=== PATIENT | male | born 1955 | race Caucasian/White ===

== ENCOUNTER 2025-01-20 13:58 | Outpatient (REF) | payer MEDICARE, SELFPAY ==
[2025-01-20 17:33] LABS: Hematocrit 43.6 % (42.0-52.0); Hemoglobin 14.9 g/dl (14.0-18.0); Mean Corpuscular HGB Conc 34.2 g/dl (31.0-36.0); Mean Corpuscular Hemoglobin 30.7 pg (27.0-33.0); Mean Corpuscular Volume 89.9 fL (80.0-98.0); NRBC Abs Auto 0.000 X10*3/uL (0.0-0.012); NRBC Pct Auto 0.0 /100WBC (0.0-0.2); Platelet Count 293 X10*3/uL (160-400); Red Blood Count 4.85 X10*6/uL (4.60-5.80); White Blood Count 8.0 X10*3/uL (4.8-10.8)
[2025-01-20 17:39] LABS: Hemoglobin A1C 475.7347 umol/L; Total Hemoglobin (HGBA1C) 3806.0510 umol/L
[2025-01-20 18:06] LABS: Microalbum/Creatinine Ratio Ur 12.8 ug/mg cr (<30)
[2025-01-20 18:06] LABS: Alanine Aminotransferase 18 U/L (0-40); Albumin Level 4.3 g/dL (3.5-5.0); Alkaline Phosphatase 105 U/L (39-117); Anion Gap 12 (12-20); Aspartate Amino Transferase 25 U/L (5-37); Blood Urea Nitrogen 14 mg/dL (9-16); Calcium 9.1 mg/dL (8.4-10.2); Carbon Dioxide 26 mmol/L (22-29); Chloride 104 mmol/L (96-108); Cholesterol 223 mg/dL (<200); Estimated Glomerular Filt Rate > 60; HDL Cholesterol 42 mg/dL (>40); Potassium 4.3 mmol/L (3.3-5.1); Sodium 138 mmol/L (135-145); Total Protein 7.5 g/dL (6.5-8.0); Triglycerides 230 mg/dL (<150)
[2025-01-20 18:35] LABS: Folate 10.7 ng/mL (> or = 4.0); Vitamin B12 664 pg/mL (200-900)
== END 2025-01-20 13:59 | disposition home or self-care (01) ==
LOC: HO.WFDLDS 13:58
PROVIDERS: PCP Nurse Practitioner Family; Visit Provider Nurse Practitioner Family
DX: Z00.00 Encounter for general adult medical examination without abnormal findings (principal); Z12.5 Encounter for screening for malignant neoplasm of prostate; E78.2 Mixed hyperlipidemia; E11.9 Type 2 diabetes mellitus without complications; Z28.21 Immunization not carried out because of patient refusal; Z53.20 Procedure and treatment not carried out because of patient's decision for unspecified reasons; Z71.89 Other specified counseling; Z76.89 Persons encountering health services in other specified circumstances
CPT/HCPCS: 36415; 80053; 80061; 82043; 82306; 82570; 82607; 82746; 83036; 84153; 85027; 96127; 99212; 99497

== ENCOUNTER 2025-01-20 13:58 | Outpatient (AMB) | payer MEDICARE, SELFPAY ==
--- NOTE | 2025-01-20 14:15 | MHC.PC.OV ---
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 Conventional Machinist Required: No Allergies No Known Allergies Allergy (Verified 01/20/25 14:39) Medication List - Last Reconciled 01/20/25 by CHARITY Hampton No Known Home Meds Tobacco use date assessed: 01/20/25 Fall risk assessment: No Falls in past year Last assessed Fall Risk: 01/20/25 Dental Screening Dental Screen Date: 01/20/25 Did you have a dental visit in the last 12 months?: No Did you have a dental problem in the last 6 months where you did not have access to dental care?: No Was dental information given to patient?: No HPI HPI Comments History of Present Illness Details 70 y/o Montene[place] M, with SurgHx: none FHx SocHx: Health Maintenance: Colon: Vaccines: Declined all. AAA screen EKG: [place] of Care: Visual Acuity: Hearing Screening: ACP: Dietary/Nutrition/Exercise Edu provided: Y Here w/ son, who helps w/ language barrier Heartburn started 1 year ago. Comes and goes. Alleviating: Mylanta Exacerbating: sauces and spices PFSH Medical History (Updated 01/20/25 @ 14:45 by CHARITY Hampton) GERD (gastroesophageal reflux disease) Surgical History (Updated 01/20/25 @ 14:26 by Liborio Almaraz MA) No pertinent past surgical history Family History (Updated 01/20/25 @ 14:26 by Liborio Almaraz MA) Mother Cancer Social History (Updated 01/20/25 @ 14:25 by Liborio Almaraz MA) Household Members: Spouse Both parents involved: No Caregiver staying overnight: No Housing: House Are you a primary memory care program director to a significant other at home: No Do you presently have visiting nurse or other home services: No 75 years or older and lives alone: No Alcohol intake: never Patient Tobacco Use Status: Never used Tobacco e-Cigarette/Vaping Use: Never Used Second Hand Smoke Exposure: No service: No Current occupational status: retired Cognitive needs: No Hearing needs: No Vision needs: No Questionnaire PHQ-9 Over the last 2 weeks, how often have you been bothered by any of the following problems? 1. Little interest or pleasure in doing things: not at all 2. Feeling down, depressed, or hopeless: not at all 3. Trouble falling or staying asleep, or sleeping too much: not at all 4. Feeling tired or having little energy: not at all 5. Poor appetite or overeating: not at all 6. Feeling bad about yourself - or that you are a failure or have let yourself or your family down: not at all 7. Trouble concentrating on things, such as reading the newspaper or watching television: not at all 8. Moving or speaking so slowly that other people could have noticed. Or the opposite - being so fidgety or restless that you have been moving around a lot more than usual: not at all 9. Thoughts that you would be better off or of hurting yourself in some way: not at all Total score: 0 Depression Screening Interpretation: Negative Depression Screening Done: Yes 99909 - PHQ-9 Billing: Yes Source: Developed by Drs. Nirav High, Faviola Butler, Dwain Gale and colleagues, with an educational erica from [employer]. Thrive Questionnaire Date Thrive assessed: 01/20/25 I am a: Patient What is your living situation today?: I have a steady place to live Within the past 12 months, did the food you bought not last and you didn't have the money to get more?: Never true Within the past 12 months, did you worry whether your food would run out before you got money to buy more?: Never true Do you have trouble paying for medicines?: No Do you have trouble getting transportation to medical appointments?: No Do you have trouble paying your heating and electricity bill?: No Do you have trouble taking care of your child, family member or friend?: No Do you have trouble with day-to-day activities such as bathing, preparing meals, shopping, managing finances, etc.?: No Are you currently unemployed and looking for a job?: No Are you interested in more education?: No Please select the resources that you would like help with: None Currently or been in a relationship where the following occur: No concerns reported THRIVE Score: 0 AUDIT C Alcohol Use Questionnaire (AUDIT-C) 1. How often do you have a drink containing alcohol?: Never 3. How often do you have six or more drinks on one occasion?: Never Total Score: 0 Score Reviewed/Action Taken: Yes SUNNI-7 AMB Questionnaire SUNNI-7 Date SUNNI - 7 assessed: 01/20/25 Feeling nervous, anxious, or on edge: 0 = Not at all Not being able to stop or control worryin = Not at all Worrying too much about different things: 0 = Not at all Trouble relaxin = Not at all Being so restless that it is hard to sit still: 0 = Not at all Becoming easily annoyed or irritable: 0 = Not at all Feeling afraid as if something awful might happen: 0 = Not at all Total SUNNI-7 score (0-4 normal; 5-9 mild; 10-14 moderate; 15-21 severe): 0 Source: Developed by Drs. Nirav High, Faviola Butler, Dwain Gale and colleagues, with an educational erica from [employer]. SUNNI-7 Assessment Billing SUNNI-7 Assessment Tool: SUNNI-7 Assessment 57709 Physical exam (Primary Care) Vital Signs: Last Vital Signs Temp 97.8 F 01/20/25 14:23 Pulse 93 01/20/25 14:23 Resp 13 01/20/25 14:23 BP 138/78 01/20/25 14:23 Pulse Ox 96 01/20/25 14:23 Oxygen Delivery Method Room Air 01/20/25 14:23 BMI result Body Mass Index 29.1 Tobacco/Smoking Status: Tobacco use Status Tobacco use date assessed 01/20/25 01/20/25 14:20 Patient Tobacco Use Status Never used Tobacco 01/20/25 14:25 e-Cigarette/Vaping Use Never Used 01/20/25 14:25 PHQ-9: PHQ-9 Score PHQ-9: Total score 0 01/20/25 14:20 Depression Screening Interpretation: Negative Thrive Assessment: Date of Thrive Assessment Date Thrive assessed 01/20/25 01/20/25 14:20 Currently or been in a relationship where the following occur: No concerns reported Coding Diagnoses Laboratory exam ordered as part of routine general medical examination Z00.00 Additional Codes SUNNI-7 Assessment Billing - SUNNI-7 Assessment Tool: SUNNI-7 Assessment 07459 ([id number]) PHQ-9 - 67250 - PHQ-9 Billing: Yes ([id number]) Assessment & Plan Assessment & Plan (1) Laboratory exam ordered as part of routine general medical examination: Code(s): Z00.00 - Encounter for general adult medical examination without abnormal findings Category: Medical Orders: Orders Complete Blood Count no Diff Today Z00.00 - Encounter for general adult medical examination without abnormal findings Hemoglobin A1c Today Z00.00 - Encounter for general adult medical examination without abnormal findings Lipid Panel Today Z00.00 - Encounter for general adult medical examination without abnormal findings Comprehensive Met. Panel Today Z00.00 - Encounter for general adult medical examination without abnormal findings Microalbumin, Random (w Creat) Today Z00.00 - Encounter for general adult medical examination without abnormal findings Prostate Specific Antigen Scr Today Z00.00 - Encounter for general adult medical examination without abnormal findings Vitamin B12 and Folate Today Z00.00 - Encounter for general adult medical examination without abnormal findings Vitamin D 25-OH Total Today Z00.00 - Encounter for general adult medical examination without abnormal findings Medications: New pantoprazole 20 mg PO DAILY 90 tabs 2RF Patient Instructions: Pantoprazole was sent to Trellt Take this daily for 4 weeks and then as needed. I have sent in enough for 1 year; ok to take daily if your heartburn symptoms continue. Return in 1 year for a physical, or sooner as needed. Walk-In Care (Urgent Care): We Make it Easy Walk-in for urgent medical issues such as: ? Seasonal Allergies ? Insect Bites ? Cough ? Diarrhea ? Acute Asthma Attacks ? Back, Knee or Joint Pain ? Ear Infection ? Fever without a Rash ? Headaches ? Nausea ? [place] [facility], Rash or Skin Irritation ? Sore Throat ? Sports Physicals ? Vomiting Most insurances are accepted. Patients do not need to be part of the [facility] to seek care at the walk-in clinic. Locations [address], [place] [address] ? [phone] [facility] Walk-In Care in [place] provides services to ages 18 and over. Open Friday-Friday: 7 a.m. to 5 p.m. and Friday: 9 a.m. to 3 p.m.* *Hours may vary due to staffing availability. To confirm Walk-In Care hours in [place], please call [phone]. [address] [place] [address] ? [phone] [facility] Walk-In Care in [place] provides services to ages 12 and over. Open Friday-Friday: 8 a.m. to 5 p.m. Hours may vary due to staffing availability. To confirm Walk-In Care hours in [place], please call [phone]. LABORATORY SERVICES: [facility] Lab ? Primary Location [address] [place] [address] Friday through Friday 6:00 AM ? 5:00 PM Friday 7:00 AM ? 11:00 AM* [phone] The [facility] Lab is centrally located near the front entrance of the [facility] for easy outpatient access. Convenient parking is provided for outpatients. *Hours may vary due to staffing availability. To confirm Laboratory hours for any location, please call [phone]. Offsite Location For your convenience, we offer offsite laboratory draw stations at the following locations: [address] [place] [address] ? [address], [address] Friday through Friday 7:30 AM ? 1:00 PM* [phone] *Hours may vary due to staffing availability. To confirm Laboratory hours for any location, please call [phone]. [place] ? [address] Friday through Friday 6:00 AM ? 3:30 PM* Friday 6:30 AM ? 3 PM* [phone] *Hours may vary due to staffing availability. To confirm Laboratory hours for any location, please call [phone] [place] [address] Friday through Friday 7:30 AM ? 4:00 PM* [phone] *Hours may vary due to staffing availability. To confirm Laboratory hours for any location, please call [phone] [place] [address] Friday through 9:00 AM ? 4:00 PM* *Hours may vary due to staffing availability. To confirm Laboratory hours for any location, please call [phone]. Appointments are not necessary. Walk-ins are welcome. Like all the departments throughout the [facility], our Lab undergoes frequent reviews to ensure the quality and accuracy of test results, and our staff takes special pride in its status as a nationally accredited facility. Patient Portal: [facility] ONE PATIENT. ONE RECORD. BETTER CARE. [facility] has a fully integrated, cutting-edge mobile electronic health information system that has revolutionized the way we care for our patients and manage our organization. This system improves communication and coordination enabling us to provide safe, higher-quality care, and an overall positive experience for staff and patients. Our first priority, as always, is to deliver the highest quality care possible. The system is running in the background supporting that priority. This portal is for all [facility] and [facility] services and practices. If you are experiencing any technical difficulties with enrolling or logging into the Patient Portal please complete the [facility] Patient Portal Technical Support Form. [facility] now offers a new secure on-line interactive tool for patients to review their health information ? Patient Portal. This interactive web portal will enable patients and their families to take an active role in their care by providing easy, secure access to their health information via the internet. The Patient Portal provides patients with instant access to their health information, including laboratory results, medications, allergies, demographic information, visit history, and more. In addition to managing their own care, parents and health care proxies with authorized consent will appreciate the ability to access the records of those individuals for whom they provide care. Please note: if you wish to gain access (Proxy) to another patient?s portal, you will be required to come to the Medical Records Department in person at [facility]. Both the patient giving proxy access and the proxy will need to provide photo identification and complete the appropriate authorization. The Patient Portal also allows track their appointments online. The [facility] Patient Portal also saves patients time by allowing them to submit updates to their demographic and contact information prior to their visits. Portal email notifications will also alert patients to any new activity on their portal, such as test results and new appointments. In order to initially enroll in the [facility] Patient Portal, you will need to enter some required information including the following: ? your [facility] Medical Record number ? your personal home email address ? name ? date of Please note: In order to enroll in the [facility] Patient Portal, we need to have your email address on file in your electronic medical record. The email address needs to be specific for one person (yourself) in order for your Portal enrollment to be successful. You can update your email address in person with our Registration staff when you are registering for a hospital visit. Otherwise, you will need to come to the Health Information Management (Medical Records) Department at [facility]. We are open from Friday ? Friday from 7:30 a.m. ? 4:30 p.m. You will be required to present a photo id. Once you have successfully enrolled in the Patient Portal, you will receive a one-time user id and password for the Portal, sent to your email address. This will allow you to log into the Patient Portal within 99 hrs and reset your own logon id and password, and define personal security questions. Once your permanent login and password have been set, you can log into the [facility] Patient Portal at any time via the blue button above or from the Portal Logon button on any page of the [facility] website. [facility] and [facility] encourage all of our patients to enroll in Patient Portal as it presents a valuable opportunity for patients and their families to actively participate in their care and stay healthy Welcome to [facility]. We look forward to working with you. Health screenings for men You should visit your health care provider regularly, even if you feel healthy. The purpose of these visits is to: Screen for medical issues Assess your risk for future medical problems Encourage a healthy lifestyle Update vaccinations and other preventive care services Help you get to know your provider in case of an illness Information Even if you feel fine, you should still see your provider for regular checkups. These visits can help you avoid problems in the future. For example, the only way to find out if you have high blood pressure is to have it checked regularly. High blood sugar and high cholesterol level also may not have any symptoms in the early stages. Simple blood tests can check for these conditions. There are specific times when you should see your provider or receive specific health screenings. The [place] Preventive Services Task Force publishes a list of recommended screenings. Below are screening guidelines for men ages 40 to 64. BLOOD PRESSURE SCREENING Have your blood pressure checked at least once every year. Watch for blood pressure screenings in your area. Ask your provider if you can stop in to have your blood pressure checked. Ask your provider if you need your blood pressure checked more often if: You have diabetes, heart disease, kidney problems, or are overweight or have certain other health conditions You have a first-degree relative with high blood pressure You are Black Your blood pressure top number is from 120 to 129 mm Hg, or the bottom number is from 70 to 79 mm Hg If the top number is 130 mm Hg or greater or the bottom number is 80 mm Hg or greater, this is considered stage 1 hypertension. Schedule an appointment with your provider to learn how you can lower your blood pressure. Effects of age on blood pressure CHOLESTEROL SCREENING Cholesterol screening should begin at age 35 for men with no known risk factors for coronary heart disease. Repeat cholesterol screening should take place: Every 5 years for men with normal cholesterol levels More often if changes occur in lifestyle (including weight gain and diet) More often if you have diabetes, heart disease, kidney problems, or certain other conditions COLORECTAL CANCER SCREENING If you are under age 45, talk to your provider about getting screened. You may need to be screened if you have a strong family history of colon cancer or polyps. Screening may also be considered if you have risk factors such as a history of inflammatory bowel disease or polyps. If you are age 45 to 75, you should be screened for colorectal cancer. There are several screening tests available: A stool-based fecal occult blood (gFOBT) or fecal immunochemical test (FIT) every year A stool sDNA test every 1 to 3 years Flexible sigmoidoscopy every 5 years or every 10 years with stool testing FIT done every year CT colonography (virtual colonoscopy) every 5 years Colonoscopy every 10 years You may need a colonoscopy more often if you have risk factors for colorectal cancer, such as: Ulcerative colitis A personal or family history of colorectal cancer A history of growths in your colon called adenomatous polyps DENTAL EXAM Go to the dentist once or twice every year for an exam and cleaning. Your dentist will evaluate if you have a need for more frequent visits. DIABETES SCREENING All adults who do not have risk factors for diabetes should be screened starting at age 35 and repeated every 3 years. If you have other risk factors for diabetes, such as a first degree relative with diabetes, overweight or obesity, high blood pressure, prediabetes, or a history of heart disease, you may be tested more often. If you are overweight and have other risk factors, such as high blood pressure and are planning to become , screening is recommended. EYE EXAM Have an eye exam every 2 to 4 years ages 40 to 54 and every 1 to 3 years ages 55 to 64. Your provider may recommend more frequent eye exams if you have vision problems or glaucoma risk. Have an eye exam that includes an examination of your retina (back of your eye) at least every year if you have diabetes. IMMUNIZATIONS Commonly needed vaccines include: Flu shot: get one every year COVID-19 vaccine: ask your provider what is best for you Tetanus-diphtheria and acellular pertussis (Tdap) vaccine: have as one of your tetanus-diphtheria vaccines if you did not receive it as an adolescent Tetanus-diphtheria: have a booster (or Tdap) every 10 years Varicella vaccine: receive 2 doses if you never had chickenpox or the varicella vaccine and were born in 1980 or after Hepatitis B vaccine: receive 2, 3, or 4 doses, depending on your exact circumstances, if you did not receive these as a child or adolescent, until age 59 Shingles (herpes zoster) vaccine: at or after age 50 Ask your provider if you should receive other immunizations, especially if you have certain medical conditions, such as diabetes or are at increased risk for some diseases such as pneumonia. INFECTIOUS DISEASE SCREENING Screening for hepatitis C: all adults ages 18 to 79 should get a one-time test for hepatitis C. Screening for human immunodeficiency virus (HIV): all people ages 15 to 65 should get a one-time test for HIV. Depending on your lifestyle and medical history, you may need to be screened for infections such as syphilis, chlamydia, and other infections. LUNG CANCER SCREENING You should have an annual screening for lung cancer with low-dose computed tomography (LDCT) if: You are age 50 to 80 years AND You have a 20 pack-year smoking history AND You currently smoke or have quit within the past 15 years OSTEOPOROSIS SCREENING If you are age 50 to 64 and have risk factors for osteoporosis, you should discuss screening with your provider. Risk factors can include long-term steroid use, low body weight, smoking, heavy alcohol use, having a fracture after age 50, or a family history of hip fracture or osteoporosis. Osteoporosis PHYSICAL EXAM All adults should visit their provider from time to time, even if they are healthy. The purpose of these visits is to: Screen for diseases Assess risk of future medical problems Encourage a healthy lifestyle Update vaccinations and other preventive care services Maintain a relationship with a provider in case of an illness Your height, weight, and body mass index (BMI) should be checked at every exam. During your exam, your provider may ask you about: Depression and anxiety Diet and exercise Alcohol and tobacco use Safety, such as use of seat belts and smoke detectors Your medicines and risk for interactions PROSTATE CANCER SCREENING If you're 55 through 69 years old, before having the test, talk to your provider about the pros and cons of having a PSA test. Ask about: Whether screening decreases your chance of dying from prostate cancer. Whether there is any harm from prostate cancer screening, such as side effects from testing or overtreatment of cancer when discovered. Whether you have a higher risk of prostate cancer than others. If you are age 55 or younger, screening is not generally recommended. You should talk with your provider about if you have a higher risk for prostate cancer. Risk factors include: Having a family history of prostate cancer (especially a brother or father) Being If you choose to be tested, the PSA blood test is repeated over time (yearly or less often), though the best frequency is not known. Prostate examinations are no longer routinely done on men with no symptoms. Prostate cancer SKIN EXAM Your provider may check your skin for signs of skin cancer, especially if you're at high risk. People at high risk include those who have had skin cancer before, have close relatives with skin cancer, or have a weakened immune system. TESTICULAR EXAM The [place] Preventive Services Task Force (USPSTF) now recommends against performing testicular self-exams. Doing testicular self-exams has been shown to have little to no benefit.
[2025-01-20 14:23] VITALS: BP 138/78; PULSE 93; RESP 13; TEMP 36.6; O2SAT 96; BMI 29.1
--- NOTE | 2025-01-24 07:33 | AM.OFFVISMDC ---
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 The Medicare Annual Wellness Visit (AWV) is a yearly appointment with a health professional to identify health risks and help reduce them and to create or update a personalized prevention plan. During a Medicare AWV, health professionals should also review any current opioid prescriptions, detect any cognitive impairment, and establish or update medical and family history. 70 y/o [place] M, with DM2, HLD, GERD SurgHx: none FHx: Y SocHx: Y Health Maintenance: See scanned preventative medicine assessment with personalized health plan and screening schedule. Colon: Declined Vaccines: Declined all. AAA screen: Declined EKG: Declined [place] of Care: None Visual Acuity: Declined screen, reports vision is fine. No last eye exam to record. Hearing Screening: Reports no issues or concerns ACP: Does not have; forms reviewed. Dietary/Nutrition/Exercise Edu provided: Y During the course of the visit the patient was educated and counseled about appropriate screening and preventative services. Patient instructions were provided to the patient in written or electronic format. I have reviewed and verified the above information. Here w/ son, who helps w/ language barrier. No medical care in > 60 years. Heartburn started 1 year ago. Comes and goes. Alleviating: Mylanta Exacerbating: sauces and spices - Onset last year, intermittent symptoms. - Mylanta provides symptomatic relief. - Symptoms exacerbated by spicy foods. - Reports constipation with hard stools occasionally. Social History - Lives with family. - Has five children. - Drives independently. Health Maintenance - Discussed screening colonoscopy for colon cancer; patient declined. - Offered vaccines; patient declined based on cultural preference. Review of Systems - Gastrointestinal: Reports heartburn, constipation. - General: Denies other concerns. - Respiratory: Denies issues. - Visual: Denies problems with vision. Physical Exam General: Well developed, well nourished, in no acute distress. Appears stated age. Head: Normocephalic, atraumatic. Eyes: No problems with eyes or vision reported. Pupils are equal, round and reactive to light and accommodation. Conjunctivae are clear. Vision grossly normal. Ears: TMs clear AU, EACS WNL Nose: Patent, without discharge. Neck: Supple, no adenopathy or thyromegaly. Breast: Edu on SBE Lungs: Clear to auscultation bilaterally. No rales, rhonchi or wheeze noted. Good air flow in all buenrostro. Heart: Regular rate and rhythm. No murmurs, click, rubs or gallops are noted. Abdomen: Bowel sounds present in all quadrants. The abdomen is soft, nontender, with no masses or organomegaly noted. No hernias are noted. : Deferred. Reviewed JUNIOR & recommendations Musculoskeletal: Joints are nontender, without swelling, redness, or effusions. Range of motion is observed to be normal. Pulses: Peripheral pulses are equal and palpable bilaterally. Extremities: No clubbing, cyanosis nor edema is noted. Neurologic: Gait and station normal. Cranial Nerves 2-12 intact. Motor strength grossly symmetrical and intact. No sensory loss. Balance normal. Skin: No rashes, ulcers, or lesions noted. Turgor is good. Skin color is good. Hair and nails are without abnormalities. Psych: Normal eye contact, affect and mood appropriate, and normal interactions. Patient is alert and appropriate to context. Results See below Discussion Notes We discussed that the patient reports symptoms of heartburn believed to be consistent with gastroesophageal reflux disease, for which I offered the option of prescriptive medication. I explained that the medication could be taken daily for a duration of four weeks or continuously depending on symptoms. We also reviewed the option of undergoing a colonoscopy for cancer screening, which the patient declined after discussing with him cultural and personal preferences. We addressed the patient?s constipation by discussing potential relief strategies, though specific interventions beyond today's discussion were not pursued. I also explained I would type up the prescription for heartburn medication and consider possible diagnostic tests for future appointments. Patient was given time to ask questions. All questions were answered to their satisfaction. Assessment and Plan 1. Gastroesophageal Reflux Disease (GERD) - GERD management with prescription medication. - Discussed daily or 'as needed' medication use. 2. Constipation - Occasional constipation advice given. - Consider self-care with remedies. 3. HLD and DM2. Pt will be called w/ results and treatments offered. Patient Instructions - Take the prescribed medication for heartburn as directed. - Use the medication for either four weeks continuously or as needed after that. - Avoid spicy foods if they worsen heartburn symptoms. - Increase fluid and fiber intake for constipation relief. - RTO 1 year CPE Consent The patient consented to receive prescription medication for GERD management after discussing usage frequency options. He acknowledged understanding the benefits of regular versus as-needed usage. The potential for conducting further diagnostic evaluations in the future was discussed, with mutual understanding, although today's session did not involve detailed procedural or treatment discussions requiring consent. Consent obtained verbally. Patient was informed and verbally consented to the use of an ambient scribe for clinic note documentation during this visit. An additional 30 minutes was spent addressing the problem(s) noted at todays visit. This includes time spent before the visit reviewing the chart, time spent during the visit, and time spent after the visit on documentation reviewing laboratory results, diagnostic imaging, medications, performing a medically necessary evaluation, counseling on diagnoses, care coordination, ordering appropriate tests, ordering appropriate medications, review of tests performed by other providers, reporting test results with the patient, communication with other healthcare providers. [facility] Medical History (Updated 01/24/25 @ 07:50 by Carmen Fischer, [facility]) GERD (gastroesophageal reflux disease) Surgical History (Updated 01/20/25 @ 14:26 by Liborio Almaraz MA) No pertinent past surgical history Family History (Updated 01/20/25 @ 14:26 by Liborio Almaraz MA) Mother Cancer Social History (Updated 01/20/25 @ 14:25 by Liborio Almaraz MA) Household Members: Spouse Both parents involved: No Caregiver staying overnight: No Housing: House Are you a primary childcare center director to a significant other at home: No Do you presently have visiting nurse or other home services: No 75 years or older and lives alone: No Alcohol intake: never Patient Tobacco Use Status: Never used Tobacco e-Cigarette/Vaping Use: Never Used Second Hand Smoke Exposure: No service: No Current occupational status: retired Cognitive needs: No Hearing needs: No Vision needs: No Questionnaire Medicare Wellness Checkup What [age] your age?: 65-70 What gender do you identify with?: male During the past 4 weeks, how much have you been bothered by emotional problems such as feeling anxious, depressed, irritable, sad or downhearted, and blue?: not at all During the past 4 weeks, has your physical & emotional health limited your social activities with family, friends, neighbors, or groups?: not at all During the past 4 weeks, how much bodily pain have you generally had?: no pain During the past 4 weeks, was someone available to help you if you needed & wanted help?: yes, as much as I wanted During the past 4 weeks, what was the hardest physical activity you could do for at least 2 minutes?: moderate Can you get to places out of walking distance without help? (For eg., can you travel alone on buses, taxis or drive your car?): Yes Can you go shopping for groceries or clothes without someone's help?: Yes Can you prepare your own meals?: Yes Can you do your housework without help?: Yes Because of any health problems, do you need the help of another person with your personal care needs such as eating, bathing, dressing or getting around the house?: No Can you handle your own money without help?: Yes During the past 4 weeks, how would you rate your health in general?: excellent During the past 4 weeks how have things been going for you?: very well; could hardly better Are you having difficulties driving your car?: no Do you always fasten your seat belt when you are in a car?: yes, usually During past 4 weeks, have you been bothered by the following: never: Falling or dizzy when standing up, Sexual problems?, Trouble eating well?, Teeth or denture problems?, Problems using the telephone? and Tiredness or fatigue? Have you fallen 2 or more times in the past year?: No Are you afraid of falling?: No Are you a smoker?: no During the past 4 weeks, how many drinks of wine, beer, or other alcoholic beverages did you have?: no alcohol at all Do you exercise for about 20 minutes 3 or more times a week?: yes, some of the time Have you been given information to help with the following?: no: Hazards in your house that might hurt you? and no: Keeping track of your medications? How often do you have trouble taking medicines the way you have been told to take them?: I do not have to take medicine How confident are you that you can control & manage most of your health problems?: very confident What is your race?: Other Activity of Daily Living Bathing - sponge bath, tub bath or shower: receives no assistance (gets in/out by self, if usual bathing means Dressing - getting clothes from closets & drawers, including inner/outer garments & fasteners.: gets clothes & gets completely dressed without help Toileting - going to the 'toilet room' for urine/bowel elimination & cleaning self/arranging clothes: goes to toilet room, cleans self, arranges clothes without help Transfer: moves in & out of bed and chair without help (may use support object) Continence: controls urination/bowel movements completely by self Feeding: feeds self without help Total Score: 0 Information obtained from: patient Using telephone: independent Traveling: independent Shopping: independent Preparing meals: independent Housework: independent Taking medicine: independent Managing money: independent PHQ-9 Over the last 2 weeks, how often have you been bothered by any of the following problems? 1. Little interest or pleasure in doing things: not at all 2. Feeling down, depressed, or hopeless: not at all 3. Trouble falling or staying asleep, or sleeping too much: not at all 4. Feeling tired or having little energy: not at all 5. Poor appetite or overeating: not at all 6. Feeling bad about yourself - or that you are a failure or have let yourself or your family down: not at all 7. Trouble concentrating on things, such as reading the newspaper or watching television: not at all 8. Moving or speaking so slowly that other people could have noticed. Or the opposite - being so fidgety or restless that you have been moving around a lot more than usual: not at all 9. Thoughts that you would be better off or of hurting yourself in some way: not at all Total score: 0 Depression Screening Interpretation: Negative Depression Screening Done: Yes 07342 - PHQ-9 Billing: Yes Source: Developed by Faviola CedenoW. Luke, Dwain Gale and colleagues, with an educational erica from [employer]. Physical Exam Vital Signs: Last Vital Signs Temp 97.8 F 01/20/25 14:23 Pulse 93 01/20/25 14:23 Resp 13 01/20/25 14:23 BP 138/78 01/20/25 14:23 Pulse Ox 96 01/20/25 14:23 Oxygen Delivery Method Room Air 01/20/25 14:23 BMI result Body Mass Index 29.1 Results Reviewed Results Reviewed: Assessment & Plan Assessment & Plan (1) Encounter for subsequent annual wellness visit (AWV) in Medicare patient: Onset Date: ~01/20/25 Code(s): Z00.00 - Encounter for general adult medical examination without abnormal findings (2) ACP (advance care planning): Code(s): Z71.89 - Other specified counseling (3) HLD (hyperlipidemia): Code(s): E78.5 - Hyperlipidemia, unspecified Qualifiers: Hyperlipidemia type: mixed hyperlipidemia Qualified Code(s): E78.2 - Mixed hyperlipidemia (4) DM2 (diabetes mellitus, type 2): Code(s): E11.9 - Type 2 diabetes mellitus without complications Qualifiers: 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: without assisted use Diabetes mellitus complication status: without complication Qualified Code(s): E11.9 - Type 2 diabetes mellitus without complications (5) Vaccination declined: Code(s): Z28.21 - Immunization not carried out because of patient refusal (6) Colon cancer screening declined: Code(s): Z53.20 - Procedure and treatment not carried out because of patient's decision for unspecified reasons (7) Laboratory exam ordered as part of routine general medical examination: Code(s): Z00.00 - Encounter for general adult medical examination without abnormal findings (8) Encounter to establish care with new provider: Code(s): Z76.89 - Persons encountering health services in other specified circumstances Plan . Orders: Orders Complete Blood Count no Diff 01/20/25 Z00.00 - Encounter for general adult medical examination without abnormal findings Hemoglobin A1c 01/20/25 Z00.00 - Encounter for general adult medical examination without abnormal findings Lipid Panel 01/20/25 Z00. - Encounter for general adult medical examination without abnormal findings Comprehensive Met. Panel 01/20/25 Z00.00 - Encounter for general adult medical examination without abnormal findings Microalbumin, Random (w Creat) 01/20/25 Z. - Encounter for general adult medical examination without abnormal findings Prostate Specific Antigen Scr 01/20/25 Z. - Encounter for general adult medical examination without abnormal findings Vitamin B12 and Folate 01/20/25 Z. - Encounter for general adult medical examination without abnormal findings Vitamin D 25-OH Total 01/20/25 Z. - Encounter for general adult medical examination without abnormal findings Medications: New pantoprazole 20 mg PO DAILY 90 tabs 2RF Patient Instructions: Walk-In Care (Urgent Care): We Make it Easy Walk-in for urgent medical issues such as: ? Seasonal Allergies ? Insect Bites ? Cough ? Diarrhea ? Acute Asthma Attacks ? Back, Knee or Joint Pain ? Ear Infection ? Fever without a Rash ? Headaches ? Nausea ? [place], Rash or Skin Irritation ? Sore Throat ? Sports Physicals ? Vomiting Most insurances are accepted. Patients do not need to be part of the [facility] to seek care at the walk-in clinic. Locations [facility] , [place] [address] ? [phone] [facility] Walk-In Care in [place] provides services to ages 18 and over. Open Friday-Friday: 7 a.m. to 5 p.m. and Friday: 9 a.m. to 3 p.m.* *Hours may vary due to staffing availability. To confirm Walk-In Care hours in [place], please call [phone]. [address] [place] [address] ? [phone] [facility] Walk-In Care in [place] provides services to ages 12 and over. Open Friday-Friday: 8 a.m. to 5 p.m. Hours may vary due to staffing availability. To confirm Walk-In Care hours in [place], please call [phone]. LABORATORY SERVICES: [facility] Lab ? Primary Location [address] [place] [address] Friday through Friday 6:00 AM ? 5:00 PM Friday 7:00 AM ? 11:00 AM* [phone] The [facility] Lab is centrally located near the front entrance of the Medical Center for easy outpatient access. Convenient parking is provided for outpatients. *Hours may vary due to staffing availability. To confirm Laboratory hours for any location, please call [phone]. Offsite Location For your convenience, we offer offsite laboratory draw stations at the following locations: [address] [facility], [place] ? [address], [address], [place] Friday through Friday 7:30 AM ? 1:00 PM* [phone] *Hours may vary due to staffing availability. To confirm Laboratory hours for any location, please call [phone]. [place] ? [facility] [address] [facility], [place] Friday through Friday 6:00 AM ? 3:30 PM* Friday 6:30 AM ? 3 PM* [phone] *Hours may vary due to staffing availability. To confirm Laboratory hours for any location, please call [phone]. [address] [facility] Friday through Friday 7:30 AM ? 4:00 PM* [phone] *Hours may vary due to staffing availability. To confirm Laboratory hours for any location, please call [phone] [place] [address] Friday through 9:00 AM ? 4:00 PM* *Hours may vary due to staffing availability. To confirm Laboratory hours for any location, please call [phone]. Appointments are not necessary. Walk-ins are welcome. Like all the departments throughout the [facility], our Lab undergoes frequent reviews to ensure the quality and accuracy of test results, and our staff takes special pride in its status as a nationally accredited facility. Patient Portal: [facility] ONE PATIENT. ONE RECORD. BETTER CARE. [facility] has a fully integrated, cutting-edge mobile electronic health information system that has revolutionized the way we care for our patients and manage our organization. This system improves communication and coordination enabling us to provide safe, higher-quality care, and an overall positive experience for staff and patients. Our first priority, as always, is to deliver the highest quality care possible. The system is running in the background supporting that priority. This portal is for all [facility] services and practices. If you are experiencing any technical difficulties with enrolling or logging into the Patient Portal please complete the [facility] Patient Portal Technical Support Form. [facility] now offers a new secure on-line interactive tool for patients to review their health information ? ?Patient Portal. This interactive web portal will enable patients and their families to take an active role in their care by providing easy, secure access to their health information via the internet. The Patient Portal provides patients with instant access to their health information, including laboratory results, medications, allergies, demographic information, visit history, and more. In addition to managing their own care, parents and health care proxies with authorized consent will appreciate the ability to access the records of those individuals for whom they provide care. Please note: if you wish to gain access (Proxy) to another patient?s portal, you will be required to come to the Medical Records Department in person at [facility]. Both the patient giving proxy access and the proxy will need to provide photo identification and complete the appropriate authorization. The Patient Portal also allows track their appointments online. The [facility] Patient Portal also saves patients time by allowing them to submit updates to their demographic and contact information prior to their visits. Portal email notifications will also alert patients to any new activity on their portal, such as test results and new appointments. In order to initially enroll in the [facility] Patient Portal, you will need to enter some required information including the following: your [facility] Medical Record number your personal home email address name date of Please note: In order to enroll in the [facility] Patient Portal, we need to have your email address on file in your electronic medical record. ?The email address needs to be specific for one person (yourself) in order for your Portal enrollment to be successful. ?You can update your email address in person with our Registration staff when you are registering for a hospital visit. ?Otherwise, you will need to come to the Health Information Management (Medical Records) Department at [facility]. ?We are open from Friday ? Friday from 7:30 a.m. ? 4:30 p.m. ?You will be required to present a photo id. Once you have successfully enrolled in the Patient Portal, you will receive a one-time user id and password for the Portal, sent to your email address. ?This will allow you to log into the Patient Portal within 99 hrs and reset your own logon id and password, and define personal security questions. ?Once your permanent login and password have been set, you can log into the [facility] Patient Portal at any time via the blue button above or from the Portal Logon button on any page of the [facility] website. [facility] encourage all of our patients to enroll in Patient Portal as it presents a valuable opportunity for patients and their families to actively participate in their care and stay healthy Welcome to [facility]. ?We look forward to working with you. Health screenings for men You should visit your health care provider regularly, even if you feel healthy. The purpose of these visits is to: Screen for medical issues Assess your risk for future medical problems Encourage a healthy lifestyle Update vaccinations and other preventive care services Help you get to know your provider in case of an illness Information Even if you feel fine, you should still see your provider for regular checkups. These visits can help you avoid problems in the future. For example, the only way to find out if you have high blood pressure is to have it checked regularly. High blood sugar and high cholesterol level also may not have any symptoms in the early stages. Simple blood tests can check for these conditions. There are specific times when you should see your provider or receive specific health screenings. The [place] Preventive Services Task Force publishes a list of recommended screenings. Below are screening guidelines for men ages 40 to 64. BLOOD PRESSURE SCREENING Have your blood pressure checked at least once every year. Watch for blood pressure screenings in your area. Ask your provider if you can stop in to have your blood pressure checked. Ask your provider if you need your blood pressure checked more often if: You have diabetes, heart disease, kidney problems, or are overweight or have certain other health conditions You have a first-degree relative with high blood pressure You are Black Your blood pressure top number is from 120 to 129 mm Hg, or the bottom number is from 70 to 79 mm Hg If the top number is 130 mm Hg or greater or the bottom number is 80 mm Hg or greater, this is considered stage 1 hypertension. Schedule an appointment with your provider to learn how you can lower your blood pressure. Effects of age on blood pressure CHOLESTEROL SCREENING Cholesterol screening should begin at age 35 for men with no known risk factors for coronary heart disease. Repeat cholesterol screening should take place: Every 5 years for men with normal cholesterol levels More often if changes occur in lifestyle (including weight gain and diet) More often if you have diabetes, heart disease, kidney problems, or certain other conditions COLORECTAL CANCER SCREENING If you are under age 45, talk to your provider about getting screened. You may need to be screened if you have a strong family history of colon cancer or polyps. Screening may also be considered if you have risk factors such as a history of inflammatory bowel disease or polyps. If you are age 45 to 75, you should be screened for colorectal cancer. There are several screening tests available: A stool-based fecal occult blood (gFOBT) or fecal immunochemical test (FIT) every year A stool sDNA test every 1 to 3 years Flexible sigmoidoscopy every 5 years or every 10 years with stool testing FIT done every year CT colonography (virtual colonoscopy) every 5 years Colonoscopy every 10 years You may need a colonoscopy more often if you have risk factors for colorectal cancer, such as: Ulcerative colitis A personal or family history of colorectal cancer A history of growths in your colon called adenomatous polyps DENTAL EXAM Go to the dentist once or twice every year for an exam and cleaning. Your dentist will evaluate if you have a need for more frequent visits. DIABETES SCREENING All adults who do not have risk factors for diabetes should be screened starting at age 35 and repeated every 3 years. If you have other risk factors for diabetes, such as a first degree relative with diabetes, overweight or obesity, high blood pressure, prediabetes, or a history of heart disease, you may be tested more often. If you are overweight and have other risk factors, such as high blood pressure and are planning to become , screening is recommended. EYE EXAM Have an eye exam every 2 to 4 years ages 40 to 54 and every 1 to 3 years ages 55 to 64. Your provider may recommend more frequent eye exams if you have vision problems or glaucoma risk. Have an eye exam that includes an examination of your retina (back of your eye) at least every year if you have diabetes. IMMUNIZATIONS Commonly needed vaccines include: Flu shot: get one every year COVID-19 vaccine: ask your provider what is best for you Tetanus-diphtheria and acellular pertussis (Tdap) vaccine: have as one of your tetanus-diphtheria vaccines if you did not receive it as an adolescent Tetanus-diphtheria: have a booster (or Tdap) every 10 years Varicella vaccine: receive 2 doses if you never had chickenpox or the varicella vaccine and were born in 1980 or after Hepatitis B vaccine: receive 2, 3, or 4 doses, depending on your exact circumstances, if you did not receive these as a child or adolescent, until age 59 Shingles (herpes zoster) vaccine: at or after age 50 Ask your provider if you should receive other immunizations, especially if you have certain medical conditions, such as diabetes or are at increased risk for some diseases such as pneumonia. INFECTIOUS DISEASE SCREENING Screening for hepatitis C: all adults ages 18 to 79 should get a one-time test for hepatitis C. Screening for human immunodeficiency virus (HIV): all people ages 15 to 65 should get a one-time test for HIV. Depending on your lifestyle and medical history, you may need to be screened for infections such as syphilis, chlamydia, and other infections. LUNG CANCER SCREENING You should have an annual screening for lung cancer with low-dose computed tomography (LDCT) if: You are age 50 to 80 years AND You have a 20 pack-year smoking history AND You currently smoke or have quit within the past 15 years OSTEOPOROSIS SCREENING If you are age 50 to 64 and have risk factors for osteoporosis, you should discuss screening with your provider. Risk factors can include long-term steroid use, low body weight, smoking, heavy alcohol use, having a fracture after age 50, or a family history of hip fracture or osteoporosis. Osteoporosis PHYSICAL EXAM All adults should visit their provider from time to time, even if they are healthy. The purpose of these visits is to: Screen for diseases Assess risk of future medical problems Encourage a healthy lifestyle Update vaccinations and other preventive care services Maintain a relationship with a provider in case of an illness Your height, weight, and body mass index (BMI) should be checked at every exam. During your exam, your provider may ask you about: Depression and anxiety Diet and exercise Alcohol and tobacco use Safety, such as use of seat belts and smoke detectors Your medicines and risk for interactions PROSTATE CANCER SCREENING If you're 55 through 69 years old, before having the test, talk to your provider about the pros and cons of having a PSA test. Ask about: Whether screening decreases your chance of dying from prostate cancer. Whether there is any harm from prostate cancer screening, such as side effects from testing or overtreatment of cancer when discovered. Whether you have a higher risk of prostate cancer than others. If you are age 55 or younger, screening is not generally recommended. You should talk with your provider about if you have a higher risk for prostate cancer. Risk factors include: Having a family history of prostate cancer (especially a brother or father) Being If you choose to be tested, the PSA blood test is repeated over time (yearly or less often), though the best frequency is not known. Prostate examinations are no longer routinely done on men with no symptoms. Prostate cancer SKIN EXAM Your provider may check your skin for signs of skin cancer, especially if you're at high risk. People at high risk include those who have had skin cancer before, have close relatives with skin cancer, or have a weakened immune system. TESTICULAR EXAM The [place] Preventive Services Task Force (USPSTF) now recommends against performing testicular self-exams. Doing testicular self-exams has been shown to have little to no benefit. Quality Reporting (2019) Adult ([facility] 138//) Smoking risk assessment performed?: Yes Patient Tobacco Use Status: Never used Tobacco Depression screening performed: Yes Screen Results: Yes Negative screen Recommended changes not done: EKG Patient refused: Yes Systolic BP not done?: No Diastolic BP not done?: No Body Mass Index: 29.1 BMI screening not done: No Sexual Activity Screening ([facility] 153) Sexually active?: Yes Immunizations ([facility] 147, 117) Annual Influenza Vaccine: No Flu Vaccine not done: patient reason Measles Antibody Test: No Mumps Antibody Test: No Rubella Antibody Test: No Varicella Antibody Test: No Anti Hepatitis A IgG Antigen test: No Anti Hepatitis B Virus Surface Ab test: No Fall Risk Screening ([facility] 139) Last assessed Fall Risk: 01/20/25 Fall risk assessment: No Falls in past year Dementia Assessment ([facility] 149) Cognitive assessment recorded: Yes Assessment of cognition with standardized tool: Yes Depression/Bipolar (159/160/161/177) PHQ-9: Total score: 0 Ophthalmol:Cataracts Visual Acuity (133) Visual acuity exam performed: No (pt refused.) Coding Level of Care Code Medicare Subsequent (G0439) Est Pt Level 3 (72196) Diagnoses Encounter for subsequent annual wellness visit (AWV) in Medicare patient Z00.00 ACP (advance care planning) Z71.89 Mixed hyperlipidemia E78.2 Hyperlipidemia type: mixed hyperlipidemia Type 2 diabetes mellitus without complication, without long-term current use of insulin E11.9 Diabetes mellitus assisted insulin use: 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 Diabetes mellitus complication status: without complication Vaccination declined Z28.21 Colon cancer screening declined Z53.20 Laboratory exam ordered as part of routine general medical examination Z00.00 Encounter to establish care with new provider Z76.89 CPT Codes Advance Care Planning - Time spent: 16-45 minutes ([id number]) Additional Codes PHQ-9 - 69796 - PHQ-9 Billing: Yes ([id number]) Advance Care Planning Advance Care Planning discussion: Exists, not on file Date of discussion: 01/24/25 Who was present: pt and son Forms completed: Health Care Proxy, Comfort care/DNR and Living will Time spent: 16-45 minutes Actual minutes spent: 16
[2025-01-24 07:37] VITALS: BMI 29.1
== END 2025-01-20 14:52 | disposition home or self-care (01) ==
LOC: HO.HMCFM 13:59
PROVIDERS: PCP Nurse Practitioner Family; Visit Provider Nurse Practitioner Family
DX: Z00.00 Encounter for general adult medical examination without abnormal findings (principal); E78.2 Mixed hyperlipidemia; E11.69 Type 2 diabetes mellitus with other specified complication; Z28.21 Immunization not carried out because of patient refusal; Z53.20 Procedure and treatment not carried out because of patient's decision for unspecified reasons